=== PATIENT | male | born 1945 | race Caucasian/White ===

== ENCOUNTER 2022-09-22 11:13 | Emergency (ER) | payer MEDICARE, MEDICAID, SELFPAY ==
[2022-09-22 11:22] VITALS: BP 185/99; PULSE 72; RESP 18; TEMP 36.6; O2SAT 97
--- NOTE | 2022-09-22 11:32 | CTR_ITS ---
PROCEDURE INFORMATION: Exam: CT Abdomen And Pelvis With Contrast Exam date and time: 09/22/2022 12:47 PM Age: 77 years old Clinical indication: Abdominal pain; Localized; Right lower quadrant (rlq); Additional info: Rlq abd pain TECHNIQUE: Imaging protocol: Computed tomography of the abdomen and pelvis with contrast. Total images: 2 Radiation optimization: All CT scans at this facility use at least one of these dose optimization techniques: automated exposure control; mA and/or kV adjustment per patient size (includes targeted exams where dose is matched to clinical indication); or iterative reconstruction. Contrast material: OMNI 350; Contrast volume: 100 ml; Contrast route: INTRAVENOUS (IV); REPORTING DATA: Count of CT and Cardiac NM exams in prior 12 months: This patient has received 0 known CTs and 0 known cardiac nuclear medicine studies in the 12 months prior to the current study. COMPARISON: No relevant prior studies available. RADIATION DOSE METRICS: Total DLP (mGy-cm): 642.67 FINDINGS: Liver: Normal. No mass. Gallbladder and bile ducts: Normal. No calcified stones. No ductal dilation. Pancreas: Normal. No ductal dilation. Spleen: Normal. No splenomegaly. Adrenal glands: Normal. No mass. Kidneys and ureters: Multiple bilateral simple renal cysts. There is however a 3 cm parapelvic cyst on the right kidney which has thin enhancing septations. Bosniak 2F. Stomach and bowel: Colonic diverticulosis is present without diverticulitis. Moderate stool burden. Appendix: The appendix has a normal size and configuration. No periappendiceal inflammatory changes are detected. Intraperitoneal space: Unremarkable. No free air. No significant fluid collection. Vasculature: Dilated infrarenal abdominal aorta measured at 2.5 cm. Follow-up imaging in 5 years is recommended. Mild atherosclerotic disease is evident. 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 Lymph nodes: Unremarkable. No enlarged lymph nodes. Urinary bladder: See Reproductive finding. Reproductive: Prostatomegaly noted. Irregular bladder wall suggesting chronic bladder outlet obstruction multiple posterior densities within the urinary bladder felt to represent bladder calculi. Bones/joints: Spinal degenerative changes are evident. Multilevel degenerative disc disease is noted with vacuum phenomenon. Osteophytes are noted extending from the vertebrae. No acute spinal pathology is detected. Thoracic spondylosis is present. Soft tissues: Unremarkable. CT/CT abdomen pelvis w con* [id number] IMPRESSION: 1. Multiple bilateral simple renal cysts. There is however a 3 cm parapelvic cyst on the right kidney which has thin enhancing septations. Bosniak 2F. Recommend CT without and with contrast or MR without and with contrast at 6 months and 12 months, then yearly for 5 years. 2. Dilated infrarenal abdominal aorta measured at 2.5 cm. Follow-up imaging in 5 years is recommended. 3. 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 4. Prostatomegaly noted. Irregular bladder wall suggesting chronic bladder outlet obstruction multiple posterior densities within the urinary bladder felt to represent bladder calculi. 5. Moderate stool burden. COMMENTS: Consistent with the [employer]'s Incidental Findings Committee white paper (J Am Kyala Radiol 2018): Any incidental renal lesion less than 1 cm or classified as too small to characterize, or any incidental cystic renal lesion characterized as simple-appearing, is likely benign. No follow-up imaging is recommended for these lesions per consensus recommendations based on imaging criteria.
--- NOTE | 2022-09-22 11:34 | ED_ITS ---
HPI - Abdominal Pain General: Chief Complaint: Abdominal Pain Stated Complaint: pain lower right side Time Seen by Provider: 09/22/22 11:15 History of Present Illness: Patient presents to the ER with complaints of right lower quadrant abdominal pain that radiates into his flank. Patient says his started around 5 AM this morning has been constant and worsening ever since. Patient has not had any abdominal surgery and still has his appendix. MD elicited complaint: abdominal pain Pertinent past history: none Onset (ago): hour(s) (About 6 hours ago) Pain Consistency: constant Location: RLQ Severity: moderate Radiation: R flank Migration to: no migration Exacerbating factors: other (Palpation) Relieving factors: nothing Review of Systems General: Reports: 10 or more systems reviewed and unremarkable except in HPI and below Physical Exam Const: COMMON NORMALS: no acute distress, average body habitus, patient oriented x3, no limitations, healthy appearing, alert and well nourished HENMT: COMMON NORMALS: normocephalic, atraumatic, hearing grossly normal bilaterally, external ears normal, Normal external nose present and moist oral mucous membranes HEAD & SCALP: normocephalic and atraumatic NOSE: Normal external nose present EXTERNAL EAR: Yes external ears normal Eye: COMMON NORMALS: Equal, round and reactive pupils present, EOMs intact bilaterally, conjunctivae normal and no scleral icterus CONJUNCTIVA: Yes conjunctivae normal PUPIL: Yes Equal, round and reactive pupils present Neck/C-Spine: COMMON NORMALS: full ROM, no lymphadenopathy, supple, no meningeal signs, no JVD and Thyroid normal THYROID: Thyroid normal Lymph: LYMPHATIC: no lymphadenopathy noted Chest: COMMONS NORMALS: normal inspection of the chest and normal palpation of entire chest wall Resp: COMMON NORMALS: normal respiratory effort, No retractions, No use of accessory muscles and clear to auscultation bilaterally AUSCULTATION: clear to auscultation bilaterally Cardio: COMMON NORMALS: no JVD, regular rate, regular rhythm, S1 normal heart sound present, S2 normal heart sound present, No gallops present (Cardio), No clicks present (Cardio), No murmurs present (Cardio) and No rub (Cardio) RATE: regular rate RHYTHM: regular rhythm HEART SOUNDS: S1 normal heart sound present and S2 normal heart sound present GI: COMMON NORMALS: Soft to palpation INSPECTION: Yes normal to inspection AUSCULTATION: Yes normoactive bowel sounds PALPATION: Yes Soft to palpation and Yes Tenderness to palpation present (GI) Details: RLQ : COMMON NORMALS: Yes no CVA tenderness BLADDER/KIDNEY EXAM: Yes no CVA tenderness Back/Pelvis: COMMON NORMALS: no CVA tenderness Neuro: COMMON NORMALS: patient oriented x3 SENSORIUM/ORIENTATION: Yes alert MENINGEAL SIGNS: Yes no meningeal signs Course Vital Signs: Vital signs: Vital Signs Temperature 97.9 F 09/22/22 11:22 Pulse Rate 72 09/22/22 11:22 Respiratory Rate 18 09/22/22 11:22 Blood Pressure 185/99 09/22/22 11:22 Pulse Oximetry 97 09/22/22 11:22 Oxygen Delivery Me thod Room Air 09/22/22 11:22 MDM - Abdominal Pain Medical Decision Making Patient presents to the ER with complaints of right lower quadrant abdominal pain. Patient has history of constipation. Imaging was obtained as well as a blood work and urine. Showed a white count of 12.5 otherwise lab work and urine was benign. CT was negative for appendicitis but was positive for moderate stool burden and did show multiple bilateral renal cysts as well as a couple aneurysms. Patient was informed of these results as well as him needing to eat more fiber and possibly take a bowel regimen to help with his constipation. Patient be discharged home on MiraLAX and will be told to follow-up with his PCP on an as-needed basis. Differential Diagnosis Likely abdominal pain and acute appendicitis; Unlikely constipation, diverticulitis, endometriosis, gastroenteritis, pancreatitis or small bowel obstruction Medical Records I reviewed the patient's medical records. Lab Data I reviewed the patient's lab results. 09/22/22 11:50 09/22/22 11:50 Labs/Radiology: Radiology Impressions Abdomen/Pelvis CT 09/22/22 11:32 IMPRESSION: 1. Multiple bilateral simple renal cysts. There is however a 3 cm parapelvic cyst on the right kidney which has thin enhancing septations. Bosniak [address]F. [address] CT without and with contrast or MR without and with contrast at 6 months and 12 months, then yearly for 5 years. 2. Dilated infrarenal abdominal aorta measured at 2.5 cm. Follow-up imaging in 5 years is recommended. 3. 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 4. Prostatomegaly noted. Irregular bladder wall suggesting chronic bladder outlet obstruction multiple posterior densities within the urinary bladder felt to represent bladder calculi. 5. Moderate stool burden. COMMENTS: Consistent with the [employer] [place] [employer]'s Incidental Findings Committee white paper (J Am Kayla Radiol 2018): Any incidental renal lesion less than 1 cm or classified as too small to characterize, or any incidental cystic renal lesion characterized as simple-appearing, is likely benign. No follow-up imaging is recommended for these lesions per consensus recommendations based on imaging criteria. Laboratory Results WBC 12.5 10^3/uL (4.0-10.0) H 09/22/22 11:50 RBC 5.12 10^6/uL (4.1-5.3) 09/22/22 11:50 Hgb 16.0 g/dL (11.7-16.6) 09/22/22 11:50 Hct 48.4 % (42.0-52.0) 09/22/22 11:50 MCV 94.5 fl (80-94) H 09/22/22 11:50 MCH 31.3 pg (28.0-34.0) 09/22/22 11:50 MCHC 33.1 g/dL (30.0-36.0) 09/22/22 11:50 RDW 12.0 % (12.1-15.1) L 09/22/22 11:50 Plt Count 272 10^3/cmm (130-400) 09/22/22 11:50 MPV 9.8 fL (7.4-10.4) 09/22/22 11:50 Neut % (Auto) 78.0 % 09/22/22 11:50 Lymph % (Auto) 13.5 % 09/22/22 11:50 [place] % (Auto) 6.5 % 09/22/22 11:50 Eos % (Auto) 1.1 % 09/22/22 11:50 Baso % (Auto) 0.6 % 09/22/22 11:50 Neut # (Auto) 9.79 10^3/uL (1.8-7.7) H 09/22/22 11:50 Lymph # (Auto) 1.7 10^3/uL (0.8-4.8) 09/22/22 11:50 [place] # (Auto) 0.8 10^3/uL (0.2-0.9) 09/22/22 11:50 Eos # (Auto) 0.1 10^3/uL (0.0-0.8) 09/22/22 11:50 Baso # (Auto) 0.1 10^3/uL (0.0-0.1) 09/22/22 11:50 Nucleated RBC % (auto) 0 % 09/22/22 11:50 Nucleated RBCs # 0.0 /100WBC 09/22/22 11:50 Sodium 140 mmol/L (136-145) 09/22/22 11:50 Potassium 4.2 mmol/L (3.5-5.1) 09/22/22 11:50 Chloride 100 mmol/L (98-107) 09/22/22 11:50 Carbon Dioxide 30 mmol/L (22-29) H 09/22/22 11:50 Anion Gap 14.2 (5-19) 09/22/22 11:50 BUN 24 mg/dL (8-23) H 09/22/22 11:50 Creatinine 0.8 mg/dL (0.7-1.2) 09/22/22 11:50 GFR Calculation Not Reportable 09/22/22 11:50 Glucose 125 mg/dL (65-115) H 09/22/22 11:50 Calculated Osmolality 296 mOsm/kg (285-295) H 09/22/22 11:50 Calcium 12.1 mg/dL (8.5-10.5) H 09/22/22 11:50 Total Bilirubin 0.4 mg/dL (0.15-1.2) 09/22/22 11:50 AST 23 U/L (0-40) 09/22/22 11:50 ALT 19 U/L (0-41) 09/22/22 11:50 Alkaline Phosphatase 124 U/L (40-130) 09/22/22 11:50 Total Protein 7.1 g/dL (6.6-8.7) 09/22/22 11:50 Albumin 4.5 g/dL (3.5-5.2) 09/22/22 11:50 Globulin 2.6 g/dL (1.3-4.6) 09/22/22 11:50 Lipase 14 U/L (13-60) 09/22/22 11:50 Urine Color Yellow (Yellow) 09/22/22 11:50 Urine Appearance Clear (CLEAR) 09/22/22 11:50 Urine pH 6 (5-7) 09/22/22 11:50 Ur Specific [place] 1.020 (1.005-1.030) 09/22/22 11:50 Urine Protein Neg (Negative) 09/22/22 11:50 Urine Glucose (UA) Norm (Normal) 09/22/22 11:50 Urine Ketones Negative (Negative) 09/22/22 11:50 Urine Blood Neg (Negative) 09/22/22 11:50 Urine Nitrate Negative (Negative) 09/22/22 11:50 Urine Bilirubin Neg (Negative) 09/22/22 11:50 Urine Urobilinogen Norm mg/dL (Negative) 09/22/22 11:50 Ur Leukocyte Esterase Negative (Negative) 09/22/22 11:50 Discharge Plan Discharge Patient Disposition: Home Clinical Impression: Abdominal pain, acute, right lower quadrant Constipation Qualifiers: Constipation type: unspecified constipation type Qualified Code(s): K59.00 - Constipation, unspecified Hypertension Qualifiers: Hypertension type: unspecified Qualified Code(s): I10 - Essential (primary) hypertension Condition: Stable Prescriptions: New polyethylene glycol 3350 [Miralax] 17 gram powder in packet 17 g PO BID Qty: 30 0RF Discharge Orders: Discharge ED (Routine); Ordered 09/22/22 Ordered By: Tony Garcia Referrals: Imtiaz Cohen DO [Primary Care Provider] - Patient Instructions: Hypertension, Abdominal Pain (ED) Activity Restrictions/Additional Instructions: Please take the MiraLAX as needed for good bowel regimen and avoidance of constipation. Please keep a blood pressure log at least a couple times a day until seen by your primary care practitioner. You may benefit from medicine and/or adjustments if you continue to have high blood pressure. Please follow- up with your primary care practitioner within 7 to 10 days. Coding Level of Care Code ED Energy Infrastructure Engineer for Paul Delaney
[2022-09-22] MEDS: ketorolac 30 mg/mL INJ IVP (11:54)
[2022-09-22 12:02] LABS: Basophils # 0.1 10^3/uL (0.0-0.1); Basophils % 0.6 %; Eosinophils # 0.1 10^3/uL (0.0-0.8); Eosinophils % 1.1 %; Hematocrit 48.4 % (42.0-52.0); Lymphocytes # 1.7 10^3/uL (0.8-4.8); Lymphocytes % 13.5 %; Mean Corpuscular HGB Conc 33.1 g/dL (30.0-36.0); Mean Corpuscular Hemoglobin 31.3 pg (28.0-34.0); Mean Corpuscular Volume 94.5 fl (80-94); Mean Platelet Volume 9.8 fL (7.4-10.4); Monocytes # 0.8 10^3/uL (0.2-0.9); Monocytes % 6.5 %; Neutrophils # 9.79 10^3/uL (1.8-7.7); Nucleated Red Blood Cells % 0 %; Platelet Count 272 10^3/cmm (130-400); Red Blood Count 5.12 10^6/uL (4.1-5.3); White Blood Count 12.5 10^3/uL (4.0-10.0)
[2022-09-22 12:03] LABS: Add Urine Microscopic? NO; Charge for UA Resulting for Rev
[2022-09-22] MEDS: ondansetron 2 mg/ML SDV 2 mL 4 MG IVP (12:03)
[2022-09-22 12:27] LABS: Bilirubin Urine Neg (Negative); Blood Urine Neg (Negative); Glucose Urine UA Norm (Normal); Ketones Urine Negative (Negative); Leukocyte Esterase Urine Negative (Negative); Nitrate Urine Negative (Negative); Protein Urine Neg (Negative); Urine Appearance Clear (CLEAR); Urine Color Yellow (Yellow); Urobilinogen Urine Norm (Negative); pH Urine 6 (5-7)
[2022-09-22 12:39] LABS: Alanine Aminotransferase 19 U/L (0-41); Albumin Level 4.5 g/dL (3.5-5.2); Alkaline Phosphatase 124 U/L (40-130); Blood Urea Nitrogen 24 mg/dL (8-23); Calcium 12.1 mg/dL (8.5-10.5); Carbon Dioxide 30 mmol/L (22-29); Chloride 100 mmol/L (98-107); Globulin 2.6 g/dL (1.3-4.6); Glucose 125 mg/dL (65-115); Lipase 14 U/L (13-60); Osmolality Calculated 296 mOsm/kg (285-295); Sodium 140 mmol/L (136-145); Total Bilirubin 0.4 mg/dL (0.15-1.2); Total Protein 7.1 g/dL (6.6-8.7)
[2022-09-22 12:41] LABS: Anion Gap 14.2 (5-19); Potassium 4.2 mmol/L (3.5-5.1)
[2022-09-22 12:42] LABS: Aspartate Amino Transferase 23 U/L (0-40)
[2022-09-22] MEDS: iohexol 350 mg/mL 500 mL Btl (per mL) IV (12:50)
== END 2022-09-22 13:38 | disposition home or self-care (01) ==
PROVIDERS: Emergency Provider Emergency Medicine; PCP Family Medicine
DX: K59.00 Constipation, unspecified (principal); I10 Essential (primary) hypertension; N28.1 Cyst of kidney, acquired
CPT/HCPCS: 74177; 80053; 81003; 83690; 85025; 96374; 96375; 99285; J1885; J2405; Q9967

== ENCOUNTER 2022-12-19 21:14 | Emergency (ER) | payer MEDICARE, MEDICAID, SELFPAY ==
[2022-12-19 21:23] VITALS: BP 204/104; PULSE 60; RESP 17; TEMP 36.4; O2SAT 97; BMI 27.1
--- NOTE | 2022-12-19 22:50 | W.ED.GENADLT ---
HPI - General Adult General: Chief complaint: General Medical Stated complaint: blood pressure Time Seen by Provider: 12/19/22 22:34 Source: patient Mode of arrival: ambulatory Limitations: no limitations History of Present Illness: 77-year-old male has a history of high blood pressure he states he has had difficulty with his blood pressure over the last 3 months with going up and down. He states that his PCP did change his blood pressure meds he is now on losartan 50 mg once daily. He states that over the last few days his blood pressures been running high it is 195/95 here. States he saw his PCP yesterday and then made no changes. Denies any chest pain denies any headache he has no other complaints Associated symptoms: Deny chest pain, dyspnea, headache(s), nausea, rash or vomiting Review of Systems Const: Denies: fever(s) or chills ENMT: Denies: throat pain or dental pain Card: Denies: chest pain Resp: Denies: dyspnea GI: Denies: abdominal pain, nausea, vomiting or diarrhea Musc: Denies: neck pain or back pain Skin/Breast: Denies: rash Neuro: Denies: headache(s) Physical Exam Const: COMMON NORMALS: no acute distress, patient oriented x3 and healthy appearing HENMT: COMMON NORMALS: normocephalic and atraumatic HEAD & SCALP: normocephalic and atraumatic Eye: COMMON NORMALS: Equal, round and reactive pupils present and EOMs intact bilaterally PUPIL: Yes Equal, round and reactive pupils present Neck/C-Spine: COMMON NORMALS: full ROM and supple Chest: COMMONS NORMALS: normal inspection of the chest and normal palpation of entire chest wall Resp: COMMON NORMALS: normal respiratory effort, No retractions, No use of accessory muscles and clear to auscultation bilaterally AUSCULTATION: clear to auscultation bilaterally Cardio: COMMON NORMALS: regular rate, regular rhythm and No murmurs present (Cardio) RATE: regular rate RHYTHM: regular rhythm GI: COMMON NORMALS: Normal to inspection, nondistended, normoactive bowel sounds present, Soft to palpation, non-tender and no masses PALPATION: Yes Soft to palpation Extremity: COMMON NORMALS: normal to inspection and full ROM Neuro: COMMON NORMALS: patient oriented x3, moves all extremities and no focal motor deficits Psych: COMMON NORMALS: mental status grossly normal, Normal thought process present and cooperative THOUGHT PROCESS: Normal thought process present Skin: COMMON NORMALS: no rashes or lesions noted and no wounds GENERAL SKIN EXAM: no rashes or lesions noted Course Vital Signs: Vital signs: Vital Signs Temperature 97.6 F 12/19/22 21:23 Pulse Rate 60 12/19/22 21:23 Respiratory Rate 17 12/19/22 21:23 Blood Pressure 204/104 12/19/22 21:23 Pulse Oximetry 97 12/19/22 21:23 Oxygen Delivery Me thod Room Air 12/19/22 21:23 MDM - General Adult Medical Decision Making Patient presents with hypertension his blood work EKG here are all normal her blood pressure is improved we will add Norvasc to his losartan he is to continue take log of his blood pressure and follow-up with PCP and return if worsening. Medical Records I reviewed the patient's medical records. Lab Data I reviewed the patient's lab results. 12/19/22 22:54 12/19/22 22:54 Laboratory Results WBC 8.13 10^3/uL (3.29-11.43) 12/19/22 22:54 RBC 5.11 10^6/uL (3.85-5.65) 12/19/22 22:54 Hgb 16.00 g/dL (11.27-16.99) 12/19/22 22:54 Hct 47.5 % (37-53) 12/19/22 22:54 MCV 93.0 fl (82-101) 12/19/22 22:54 MCH 31.3 pg (27-33) 12/19/22 22:54 MCHC 33.7 g/dL (30-55) 12/19/22 22:54 RDW 11.9 % (12.1-15.1) L 12/19/22 22:54 Plt Count 267 10^3/cmm (157-399) 12/19/22 22:54 MPV 9.2 fL (7.4-10.4) 12/19/22 22:54 Neut % (Auto) 58.1 % 12/19/22 22:54 Lymph % (Auto) 29.5 % 12/19/22 22:54 [place] % (Auto) 8.2 % 12/19/22 22:54 Eos % (Auto) 3.4 % 12/19/22 22:54 Baso % (Auto) 0.6 % 12/19/22 22:54 Neut # (Auto) 4.71 10^3/uL (1.8-7.7) 12/19/22 22:54 Lymph # (Auto) 2.4 10^3/uL (0.8-4.8) 12/19/22 22:54 [place] # (Auto) 0.7 10^3/uL (0.2-0.9) 12/19/22 22:54 Eos # (Auto) 0.3 10^3/uL (0.0-0.8) 12/19/22 22:54 Baso # (Auto) 0.1 10^3/uL (0.0-0.1) 12/19/22 22:54 Nucleated RBC % (auto) 0 % 12/19/22 22:54 Nucleated RBCs # 0.0 /100WBC 12/19/22 22:54 Sodium 143 mmol/L (136-145) 12/19/22 22:54 Potassium 4.1 mmol/L (3.5-5.1) 12/19/22 22:54 Chloride 106 mmol/L (98-107) 12/19/22 22:54 Carbon Dioxide 29 mmol/L (22-29) 12/19/22 22:54 Anion Gap 12.1 (5-19) 12/19/22 22:54 BUN 22 mg/dL (8-23) 12/19/22 22:54 Creatinine 0.8 mg/dL (0.7-1.2) 12/19/22 22:54 GFR Calculation Not Reportable 12/19/22 22:54 Glucose 94 mg/dL (65-115) 12/19/22 22:54 Calculated Osmolality 299 mOsm/kg (285-295) H 12/19/22 22:54 Calcium 11.0 mg/dL (8.5-10.5) H 12/19/22 22:54 Total Bilirubin 0.5 mg/dL (0.15-1.2) 12/19/22 22:54 AST 19 U/L (0-40) 12/19/22 22:54 ALT 14 U/L (0-41) 12/19/22 22:54 Alkaline Phosphatase 142 U/L (40-130) H 12/19/22 22:54 Total Protein 7.0 g/dL (6.6-8.7) 12/19/22 22:54 Albumin 4.2 g/dL (3.5-5.2) 12/19/22 22:54 Globulin 2.8 g/dL (1.3-4.6) 12/19/22 22:54 Discharge Plan Discharge Patient Disposition: Home Clinical Impression: Hypertension Condition: Stable Prescriptions: New Norvasc 5 mg tablet 5 mg PO DAILY Qty: 30 0RF No Action Miralax 17 gram powder in packet 17 g PO BID Qty: 30 0RF Discharge Orders: Discharge ED (Routine); Ordered 12/19/22 Ordered By: Mirna Serrato Referrals: Imtiaz Cohen DO [Primary Care Provider] - 1-3 days Discharge Diet: Advance as tolerated Discharge Activity: Resume usual activity Patient Instructions: Hypertension (ED) Coding Level of Care Code ED Automatic Splicing Machine Operator for Paul Delaney
[2022-12-19 23:01] LABS: Basophils # 0.1 10^3/uL (0.0-0.1); Basophils % 0.6 %; Eosinophils # 0.3 10^3/uL (0.0-0.8); Eosinophils % 3.4 %; Hematocrit 47.5 % (37-53); Lymphocytes # 2.4 10^3/uL (0.8-4.8); Lymphocytes % 29.5 %; Mean Corpuscular HGB Conc 33.7 g/dL (30-55); Mean Corpuscular Hemoglobin 31.3 pg (27-33); Mean Platelet Volume 9.2 fL (7.4-10.4); Monocytes # 0.7 10^3/uL (0.2-0.9); Monocytes % 8.2 %; Neutrophils # 4.71 10^3/uL (1.8-7.7); Neutrophils % 58.1 %; Nucleated Red Blood Cells % 0 %; Platelet Count 267 10^3/cmm (157-399); Red Blood Count 5.11 10^6/uL (3.85-5.65); Red Cell Distribution Width 11.9 % (12.1-15.1); White Blood Count 8.13 10^3/uL (3.29-11.43)
[2022-12-19 23:18] LABS: Alanine Aminotransferase 14 U/L (0-41); Albumin Level 4.2 g/dL (3.5-5.2); Alkaline Phosphatase 142 U/L (40-130); Anion Gap 12.1 (5-19); Aspartate Amino Transferase 19 U/L (0-40); Blood Urea Nitrogen 22 mg/dL (8-23); Carbon Dioxide 29 mmol/L (22-29); Chloride 106 mmol/L (98-107); Globulin 2.8 g/dL (1.3-4.6); Glucose 94 mg/dL (65-115); Osmolality Calculated 299 mOsm/kg (285-295); Potassium 4.1 mmol/L (3.5-5.1); Sodium 143 mmol/L (136-145); Total Bilirubin 0.5 mg/dL (0.15-1.2)
[2022-12-19] MEDS: hyDRALAzine 20 mg/mL INJ 1 mL 10 MG IVP (23:19)
--- NOTE | 2022-12-20 01:26 | PC.NURSE ---
Pt vitals not documented due to being erased before charted. Pt vitals were stable throughout duration in ER and at the time of DC.
== END 2022-12-20 01:00 | disposition home or self-care (01) ==
PROVIDERS: Emergency Provider Emergency Medicine; PCP Family Medicine
DX: I10 Essential (primary) hypertension (principal)
CPT/HCPCS: 80053; 85025; 96374; 99284; J0360

== ENCOUNTER 2023-02-05 13:47 | Emergency (ER) | payer MEDICARE, MEDICAID, SELFPAY ==
[2023-02-05 13:48] VITALS: BP 150/88; PULSE 62; RESP 18; TEMP 36.4; O2SAT 98; BMI 26.6
[2023-02-05 14:02] VITALS: BP 155/80; PULSE 64; RESP 16; O2SAT 100
--- NOTE | 2023-02-05 14:42 | PC.PHAR ---
pt verified all medications plus otc vitamin c and aspirin 81 mg. pt also drinks cloved tea
[2023-02-05 14:51] VITALS: PULSE 70; RESP 16; O2SAT 98
--- NOTE | 2023-02-05 14:56 | W.ED.SYNCOPE ---
HPI - Syncope General: Chief Complaint: Syncope Stated Complaint: Syncope Time Seen by Provider: 02/05/23 13:54 History of Present Illness: 77-year-old male presents emergency department via EMS personnel after being at a outpatient physician's office. The patient states that he was having some benign skin growths removed and after the physician injected lidocaine prior to the procedure the patient had a syncopal episode where he became unresponsive for approximately 10 to 15 seconds. The patient denies known injury or trauma. He states he was laying on the procedure table when this occurred. He states that the physician at the outpatient clinic requested that the patient be transported to the emergency department for evaluation. 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 He denies chest pain or shortness of breath. He denies nausea vomiting or dizziness. Associated symptoms: Deny chest pain or headache(s) Review of Systems General: Reports: 10 or more systems reviewed and unremarkable except in HPI and below Card: Reports: syncope; Denies: chest pain or palpitations Neuro: Denies: headache(s), numbness in extremities or weakness in extremities Physical Exam Const: COMMON NORMALS: no acute distress, patient oriented x3 and alert HENMT: COMMON NORMALS: normocephalic, atraumatic and moist oral mucous membranes HEAD & SCALP: normocephalic and atraumatic Eye: COMMON NORMALS: Equal, round and reactive pupils present, EOMs intact bilaterally and normal visual mcmillan by confrontation PUPIL: Yes Equal, round and reactive pupils present Neck/C-Spine: COMMON NORMALS: full ROM, no lymphadenopathy, supple and no meningeal signs Chest: COMMONS NORMALS: normal inspection of the chest and normal palpation of entire chest wall Resp: COMMON NORMALS: normal respiratory effort, No retractions and clear to auscultation bilaterally AUSCULTATION: clear to auscultation bilaterally Cardio: COMMON NORMALS: regular rate, regular rhythm, S1 normal heart sound present, S2 normal heart sound present and Peripheral pulses 2+ throughout RATE: regular rate RHYTHM: regular rhythm HEART SOUNDS: S1 normal heart sound present and S2 normal heart sound present PERIPHERAL PULSES: Peripheral pulses 2+ throughout GI: COMMON NORMALS: Normal to inspection, nondistended, normoactive bowel sounds present, Soft to palpation and non-tender PALPATION: Yes Soft to palpation Back/Pelvis: COMMON NORMALS: thoracic and lumbar spine normal to inspection, no thoracic nor lumbar tenderness and thoraco-lumbar ROM normal Extremity: COMMON NORMALS: normal to inspection, full ROM, capillary refill normal and no pedal edema Neuro: COMMON NORMALS: patient oriented x3, CN's II-XII intact bilaterally, moves all extremities, no focal motor deficits, no sensory deficits noted and gait normal SENSORIUM/ORIENTATION: Yes alert MENINGEAL SIGNS: Yes no meningeal signs Psych: COMMON NORMALS: mental status grossly normal, Normal thought process present, cooperative and speech normal SPEECH: Yes normal speech THOUGHT PROCESS: Normal thought process present Skin: COMMON NORMALS: no rashes or lesions noted GENERAL SKIN EXAM: no rashes or lesions noted Course Vital Signs: Vital signs: Vital Signs Temperature 97.5 F L 02/05/23 13:48 Pulse Rate 73 02/05/23 16:17 Respiratory Rate 16 02/05/23 16:17 Blood Pressure 159/87 02/05/23 16:17 Pulse Oximetry 98 02/05/23 16:17 Oxygen Delivery Me thod Room Air 02/05/23 15:21 MDM - Syncope Medical Decision Making Physical exam completed and documented I will obtain a twelve-lead EKG and orthostatic vital signs I suspect most likely given the patient's history of vasovagal syncope with procedures requiring use of a needle in his quick return to his normal neurological baseline and lack of additional symptoms that this was again a secondary vasovagal response due to the injection by the clinic physician in preparation for the patient's procedure. Patient did agree to allow laboratory evaluation and we discussed the need for follow-up and return precautions. Medical Records I reviewed the patient's medical records. Lab Data 02/05/23 14:08 02/05/23 14:08 Laboratory Results WBC 10.18 10^3/uL (3.29-11.43) 02/05/23 14:08 RBC 4.82 10^6/uL (3.85-5.65) 02/05/23 14:08 Hgb 15.40 g/dL (11.27-16.99) 02/05/23 14:08 Hct 46.0 % (37-53) 02/05/23 14:08 MCV 95.4 fl (82-101) 02/05/23 14:08 MCH 32.0 pg (27-33) 02/05/23 14:08 MCHC 33.5 g/dL (30-55) 02/05/23 14:08 RDW 11.9 % (12.1-15.1) L 02/05/23 14:08 Plt Count 323 10^3/cmm (157-399) 02/05/23 14:08 MPV 9.8 fL (7.4-10.4) 02/05/23 14:08 Neut % (Auto) 71.3 % 02/05/23 14:08 Lymph % (Auto) 18.5 % 02/05/23 14:08 Mercer % (Auto) 7.7 % 02/05/23 14:08 Eos % (Auto) 1.8 % 02/05/23 14:08 Baso % (Auto) 0.4 % 02/05/23 14:08 Neut # (Auto) 7.27 10^3/uL (1.8-7.7) 02/05/23 14:08 Lymph # (Auto) 1.9 10^3/uL (0.8-4.8) 02/05/23 14:08 Mercer # (Auto) 0.8 10^3/uL (0.2-0.9) 02/05/23 14:08 Eos # (Auto) 0.2 10^3/uL (0.0-0.8) 02/05/23 14:08 Baso # (Auto) 0.0 10^3/uL (0.0-0.1) 02/05/23 14:08 Nucleated RBC % (auto) 0 % 02/05/23 14:08 Nucleated RBCs # 0.0 /100WBC 02/05/23 14:08 Sodium 139 mmol/L (136-145) 02/05/23 14:08 Potassium 3.7 mmol/L (3.5-5.1) 02/05/23 14:08 Chloride 99 mmol/L (98-107) 02/05/23 14:08 Carbon Dioxide 31 mmol/L (22-29) H 02/05/23 14:08 Anion Gap 12.7 (5-19) 02/05/23 14:08 BUN 18 mg/dL (8-23) 02/05/23 14:08 Creatinine 0.8 mg/dL (0.7-1.2) 02/05/23 14:08 GFR Calculation Not Reportable 02/05/23 14:08 Glucose 118 mg/dL (65-115) H 02/05/23 14:08 Calculated Osmolality 291 mOsm/kg (285-295) 02/05/23 14:08 Calcium 11.6 mg/dL (8.5-10.5) H 02/05/23 14:08 Total Bilirubin 0.5 mg/dL (0.15-1.2) 02/05/23 14:08 AST 15 U/L (0-40) 02/05/23 14:08 ALT 14 U/L (0-41) 02/05/23 14:08 Alkaline Phosphatase 163 U/L (40-130) H 02/05/23 14:08 Total Protein 7.1 g/dL (6.6-8.7) 02/05/23 14:08 Albumin 4.0 g/dL (3.5-5.2) 02/05/23 14:08 Globulin 3.1 g/dL (1.3-4.6) 02/05/23 14:08 All radiology interpretation(s) finalized by discharge Discharge Plan Discharge Patient Disposition: Home Clinical Impression: Vasovagal syncope Condition: Stable Prescriptions: No Action clonidine HCl 0.1 mg tablet See Rx Instructions .ROUTE .COMPLEX Rx Instructions: TAKE 1 TABLET BY MOUTH THREE TIMES DAILY NEEDED ONLY IF SYSTOLIC IS GREATER THAN 190 OR DIASTOLIC GREATER THAN 90 Vitamin C 500 mg Tablet 500 mg PO BID ibuprofen 200 mg Tablet 400 mg PO Q6H PRN (Reason: Pain) hydrochlorothiazide 25 mg tablet 25 mg PO QAM irbesartan 150 mg tablet 150 mg PO BEDTIME Aspir-81 81 mg Tablet,Delayed Release (Dr/Ec) 81 mg PO QAM Discharge Orders: Discharge ED (Routine); Ordered 02/05/23 Ordered By: Jose Le Referrals: Imtiaz Cohen DO [Primary Care Provider] - Discharge Diet: Advance as tolerated Discharge Activity: Resume usual activity Coding Level of Care Code ED Filling Operator for Hillaryg Elaina
--- NOTE | 2023-02-05 15:13 | ECG_ITS ---
[facility] Test Date: 2023-02-05 Pat Name: Jose Ocampo Department: Room: Gender: Male Director [place]: : [id number] Requested By: Jose Le Order Number: [id number] Moshe MD: lAma Lacey M.D. Measurements Intervals [place] Rate: 69 P: 57 [place]: 174 QRS: -51 QRSD: 110 T: 58 QT: 404 QTc: 434 Interpretive Statements SINUS RHYTHM LEFT ANTERIOR FASCICULAR BLOCK [QRS AXIS <= -45, QR IN I, RS IN II] POSSIBLE LEFT VENTRICULAR HYPERTROPHY [VOLTAGE CRITERIA PLUS LAE OR QRS WIDENING] No previous ECG available for comparison Electronically Signed On 02-05-2023 19:37:25 CDT by Alma Lacey M.D. [email or web address]
[2023-02-05 15:21] VITALS: BP 159/87; BP 165/86; BP 168/82; PULSE 68; PULSE 73; PULSE 77; RESP 16; O2SAT 98
[2023-02-05 15:25] LABS: Basophils % 0.4 %; Eosinophils # 0.2 10^3/uL (0.0-0.8); Eosinophils % 1.8 %; Lymphocytes # 1.9 10^3/uL (0.8-4.8); Lymphocytes % 18.5 %; Mean Corpuscular HGB Conc 33.5 g/dL (30-55); Mean Corpuscular Volume 95.4 fl (82-101); Mean Platelet Volume 9.8 fL (7.4-10.4); Monocytes # 0.8 10^3/uL (0.2-0.9); Monocytes % 7.7 %; Neutrophils # 7.27 10^3/uL (1.8-7.7); Neutrophils % 71.3 %; Nucleated Red Blood Cells % 0 %; Platelet Count 323 10^3/cmm (157-399); Red Blood Count 4.82 10^6/uL (3.85-5.65); Red Cell Distribution Width 11.9 % (12.1-15.1); White Blood Count 10.18 10^3/uL (3.29-11.43)
[2023-02-05 15:36] LABS: Alanine Aminotransferase 14 U/L (0-41); Alkaline Phosphatase 163 U/L (40-130); Anion Gap 12.7 (5-19); Aspartate Amino Transferase 15 U/L (0-40); Blood Urea Nitrogen 18 mg/dL (8-23); Calcium 11.6 mg/dL (8.5-10.5); Carbon Dioxide 31 mmol/L (22-29); Chloride 99 mmol/L (98-107); Creatinine Clr Calc Pharmacy 78.3382; Globulin 3.1 g/dL (1.3-4.6); Glucose 118 mg/dL (65-115); Osmolality Calculated 291 mOsm/kg (285-295); Potassium 3.7 mmol/L (3.5-5.1); Sodium 139 mmol/L (136-145); Total Bilirubin 0.5 mg/dL (0.15-1.2); Total Protein 7.1 g/dL (6.6-8.7)
[2023-02-05 16:17] VITALS: BP 159/87; PULSE 73; RESP 16; O2SAT 98
== END 2023-02-05 16:20 | disposition home or self-care (01) ==
PROVIDERS: Emergency Provider Internal Medicine; PCP Family Medicine
DX: R55 Syncope and collapse (principal); Z79.82 Long term (current) use of aspirin
CPT/HCPCS: 80053; 85025; 93005; 99284